=== PATIENT | female | born 1965 | race Caucasian/White ===

== ENCOUNTER 2020-03-18 11:04 | Day surgery (SDC) | payer BC ==
[~2020-03-18 11:04] MED LIST: Lactated Ringers 1,000 ML IV SCH; Midazolam 1 MG/ML 2 ML SDV ONE; Propofol 200 MG/20 ML SDV ONE; Sodium Chloride 0.9% 10 ML Syringe FLUSH PRN
--- NOTE | 2020-03-18 12:34 | PCM.PN ---
- General Info Date of Service: 03/18/20 - Review of Systems Systems Review Comment:: 54-year-old female here for screening colonoscopy. She denies any recent change in bowel pattern. She also denies having any blood in her stool. The patient is medically stable to proceed today. Her recent history and physical is reviewed and no significant changes are noted. I have discussed the proposed colonoscopy with the patient. Risks such as but not limited to bleeding and GI injury reviewed. Questions were answered. She agrees to proceed. - Patient Data Vitals - Most Recent: Last Vital Signs Temp 98.1 F 03/18/20 11:17 Pulse 66 03/18/20 11:17 Resp 14 03/18/20 11:17 BP 119/75 03/18/20 11:17 Pulse Ox 99 03/18/20 11:17 Weight - Most Recent: 60.328 kg Med Orders - Current: Current Medications Lactated Ringer's (Ringers, Lactated) 1,000 mls @ 125 mls/hr IV ASDIRECTED OBIE Last Admin: 03/18/20 11:37 Dose: 125 mls/hr Documented by: Sodium Chloride (Saline Flush) 10 ml FLUSH ASDIRECTED PRN PRN Reason: Keep Vein Open Discontinued Medications Midazolam HCl (Versed 1 Mg/Ml) Confirm Administered Dose 2 mg .ROUTE .STK-MED ONE Stop: 03/18/20 10:46 Propofol (Diprivan 20 Ml) Confirm Administered Dose 400 mg .ROUTE .STK-MED ONE Stop: 03/18/20 10:46 Sepsis Event Note - Focused Exam Vital Signs: Vital Signs Temp Pulse Resp BP Pulse Ox 03/18/20 11:17 98.1 F 66 14 119/75 99 - Problem List Review Problem List Initiated/Reviewed/Updated: Yes - Assessment Assessment:: Colon cancer screening - Plan Plan:: Colonoscopy
[2020-03-18] MEDS ORDERED: Propofol 200 MG/20 ML SDV ONE (12:36)
[2020-03-18] MEDS ORDERED: Midazolam 1 MG/ML 2 ML SDV ONE (12:36)
--- NOTE | 2020-03-18 13:12 | PCM.OPNOTE ---
- General Post-Op/Procedure Note Date of Surgery/Procedure: 03/18/20 Operative Procedure(s): Colonoscopy Findings: Moderate sigmoid diverticulosis Pre Op Diagnosis: Colon cancer screening Post-Op Diagnosis: Sigmoid diverticulosis Anesthesia Technique: MAC Primary Surgeon: Colt Martin Pathology: none EBL in mLs: 0 Complications: None Condition: Good
--- NOTE | 2020-03-18 13:47 | OR ---
Date of Procedure: 03/18/2020 PREOPERATIVE DIAGNOSIS: Colon cancer screening. POSTOPERATIVE DIAGNOSIS: Sigmoid diverticulosis. OPERATIONS PERFORMED: Colonoscopy. INDICATIONS FOR SURGERY: This 54-year-old female comes today for screening colonoscopy. FINDINGS: The patient has a moderate degree of diverticulosis in the sigmoid region. This does not appear to be acutely inflamed, or otherwise, complicated. The remainder of the colon and rectum appeared normal. DESCRIPTION OF PROCEDURE: The patient was taken to the operating room and given intravenous sedation. With her in the left lateral decubitus position, digital rectal exam was performed showing no rectal masses. The Olympus colonoscope was inserted into the rectum. Retroflexed examination of the rectal canal was performed. The scope was then carefully advanced under direct visualization through the entire length of the colon until the cecum was reached. Cecal acquisition was confirmed by noting the normal internal cecal anatomy including the appendiceal orifice and the ileocecal valve. After examining the cecum, the scope was slowly withdrawn sequentially re-examining the colonic segments until the entire colon and rectum had been fully examined. The scope was removed, and the patient was taken from the operating room in satisfactory condition. ESTIMATED BLOOD LOSS: Zero. COMPLICATIONS: None. PROGNOSIS: Good. GIRMA Martin MD /[id number]
== END 2020-03-18 13:43 | disposition home or self-care (01) ==
LOC: LL.SDS 11:04
PROVIDERS: ATTEND Surgery
DX: Z12.11 Encounter for screening for malignant neoplasm of colon (principal); K57.30 Diverticulosis of large intestine without perforation or abscess without bleeding; Z01.812 Encounter for preprocedural laboratory examination; Z20.822 Contact with and (suspected) exposure to COVID-19; Z91.040 Latex allergy status; Z98.890 Other specified postprocedural states; Z79.899 Other long term (current) drug therapy; Z88.8 Allergy status to other drugs, medicaments and biological substances; Z91.02 Food additives allergy status
CPT/HCPCS: 00812; J2250; J2704; J7120; U0002

== ENCOUNTER 2023-10-30 03:46 | Emergency (ER) | payer BC ==
[2023-10-30] MEDS: Sodium Chloride 0.9% 10 ML Syringe FLUSH PRN (04:12)
[2023-10-30] MEDS: Ondansetron 4 MG/2 ML SDV IVPUSH ONE (04:12)
[2023-10-30 04:18] LABS: APPEARANCE,URINE SLIGHTLY CLOUDY; BASOPHILS ABSOLUTE AUTO 0.02 K/uL (0.00-0.20); BASOPHILS PERCENT AUTO 0.2 % (0.0-2.0); BILIRUBIN,URINE NEGATIVE (NEGATIVE); COLOR,URINE YELLOW; EOSINOPHILS ABSOLUTE AUTO 0.19 K/uL (0.00-0.50); EOSINOPHILS PERCENT AUTO 1.7 % (0.0-5.0); GLUCOSE,URINE NEGATIVE (NEGATIVE); HEMOGLOBIN 13.5 g/dL (11.7-15.5); KETONES,URINE NEGATIVE (NEGATIVE); LEUKOCYTE ESTERASE,URINE SMALL (NEGATIVE); LYMPHOCYTES ABSOLUTE AUTO 1.17 K/uL (0.50-3.50); LYMPHOCYTES PERCENT AUTO 10.7 % (10.0-50.0); MEAN CORPUSCULAR HEMOGLOBIN 30.6 pg (28.2-33.3); MEAN CORPUSCULAR HGB CONC 33.8 g/dL (31.7-36.0); MEAN CORPUSCULAR VOLUME 90.7 fL (84.0-98.0); MONOCYTES PERCENT AUTO 9.2 % (2.0-14.0); NEUTROPHILS ABSOLUTE AUTO 8.51 K/uL (1.40-7.00); NEUTROPHILS PERCENT AUTO 78.2 % (45.0-80.0); NITRITE,URINE NEGATIVE (NEGATIVE); OCCULT BLOOD,URINE TRACE-INTACT (NEGATIVE); PH,URINE 6.5 (5.0-9.0); PLATELET COUNT,PLT 219 K/uL (150-350); PROTEIN,URINE NEGATIVE (NEGATIVE); RED BLOOD CELL COUNT 4.41 M/uL (3.77-5.09); RED CELL DISTRIBUTION WIDTH 12.5 % (11.2-14.1); UROBILINOGEN,URINE 0.2 E.U./dL (0.2-1.0); WHITE BLOOD CELL COUNT,WBC 10.9 K/uL (4.0-10.2)
[2023-10-30] MEDS ORDERED: Naloxone 0.4 MG/ML SDV IVPUSH PRN (04:24)
[2023-10-30] MEDS ORDERED: Morphine 2 MG/ML SYRINGE IVPUSH PRN (04:24)
[2023-10-30] MEDS: Sodium Chloride 0.9% 1,000 ML IV SCH (04:29)
[2023-10-30 04:31] LABS: ALANINE AMINOTRANSFERASE,ALT 34 U/L (12-78); ALBUMIN 3.6 g/dL (3.4-5.0); ALKALINE PHOSPHATASE 135 IU/L (46-116); ANION GAP 9.3 meq/L (7-15); ASPARTATE AMNIOTRANSFERASE,AST 23 U/L (15-37); BILIRUBIN TOTAL 0.8 mg/dL (0.2-1.0); BLOOD UREA NITROGEN,BUN 18 mg/dL (7-18); CALCIUM 8.8 mg/dL (8.5-10.1); CARBON DIOXIDE,CO2 28.7 mmol/L (21.0-32.0); CHLORIDE,CL 102 mmol/L (98-107); CREATININE 1.06 mg/dL (0.51-1.17); GLUCOSE RANDOM 101 mg/dL (70-99); POTASSIUM,K 3.7 mmol/L (3.5-5.1); PROTEIN TOTAL,TP 7.2 g/dL (6.4-8.2); SODIUM,NA 140 mmol/L (136-145)
[2023-10-30] MEDS: diphenhydrAMINE 50 MG/ML SDV IVPUSH ONE (04:31)
[2023-10-30 04:32] LABS: AMORPHOUS SEDIMENT,URINE FEW /HPF (0/HPF); BACTERIA,URINE RARE /HPF (NONE TO FEW); EPITHELIAL CELLS,URINE MODERATE /LPF; MUCUS,URINE MODERATE /LPF (NEGATIVE); RBC,URINE 0-5 /HPF
[2023-10-30 04:35] LABS: ESTIMATED GFR 62 mL/min (>=60)
[2023-10-30] MEDS ORDERED: Iopamidol 612 MG/ML 100 ML Bottle ONE (04:35)
[2023-10-30] MEDS: Sulfamethoxazole/Trimethoprim 800-160 MG Tab PO ONE (07:23)
== END 2023-10-30 07:30 | disposition home or self-care (01) ==
LOC: LL.ED 03:46
DX: K57.32 Diverticulitis of large intestine without perforation or abscess without bleeding (principal); Z91.018 Allergy to other foods; Z91.048 Other nonmedicinal substance allergy status; Z88.8 Allergy status to other drugs, medicaments and biological substances; Z79.899 Other long term (current) drug therapy; Z90.49 Acquired absence of other specified parts of digestive tract
CPT/HCPCS: 36415; 74177; 80053; 81001; 83605; 83735; 84484; 85025; 87086; 96361; 96374; 96375; 99284-25; A9270-GY; J1200; J2405; J3490; J7030; Q9967; U0002